=== PATIENT | female | born 1995 | race African-American/Black ===

== ENCOUNTER 2022-07-25 00:18 | Inpatient (IN) | payer MEDICAID ==
[~2022-07-25] VITALS: Ht 162.6 cm; Wt 77.2 kg
[2022-07-25] MEDS ORDERED: methylPREDNISolone SOD SUCC 125 MG/2 ML VL IM ONE (01:00)
[2022-07-25] MEDS ORDERED: IPRATROPIUM BROM 0.5 MG/2.5ML INH SOL NEB ONE (01:00)
[2022-07-25] MEDS ORDERED: ALBUTEROL SULF 2.5 MG/0.5ML(0.5%) NEB SOLN NEB ONE ×2 (01:00→04:00)
[2022-07-25] MEDS ORDERED: methylPREDNISolone SOD SUCC 125 MG/2 ML VL IV ONE (01:00)
[2022-07-25] MEDS ORDERED: cefTRIAXone 1GM/50ML D5W 50 ML IV ONE (04:00)
[2022-07-25] MEDS ORDERED: LORazepam 0.5 MG TAB PO PRN (06:45)
[2022-07-25] MEDS ORDERED: DOCUSATE SOD 100 MG CAP PO PRN (06:45)
[2022-07-25] MEDS ORDERED: MORPHINE SULFATE INJ 2 MG/ml SYRG IV PRN (06:45)
[2022-07-25] MEDS ORDERED: HYDROcodone-ACET 5/325MG TAB PO PRN (06:45)
[2022-07-25] MEDS ORDERED: MAALOX PLUS or MAALOX 30 ML PO PRN (06:45)
[2022-07-25] MEDS ORDERED: ONDANSETRON HCL 4 MG/2 ML VIAL IV PRN (06:45)
[2022-07-25] MEDS ORDERED: TEMAZEPAM 15 MG CAP PO PRN (06:45)
[2022-07-25 08:28] LABS: Hematocrit 38.1 % (36.0-46.0); Mean Corpuscular Hemoglobin 30.8 pg (28.0-32.0); Mean Corpuscular Hgb Conc. 34.1 g/dL (32.0-36.0); Mean Corpuscular Volume 90.5 fL (80.0-100.0); Red Blood Cells 4.21 10^6/uL (4.0-5.20); White Blood Cell 8.2 10^3/uL (4.4-10.8)
[2022-07-25] MEDS: SODIUM CHLORIDE 0.9% 1,000 ML IV SCH ×2 (08:34→11:00)
[2022-07-25 08:37] LABS: BUN/Creatinine Ratio 19.8; Calcium 9.2 mg/dL (8.5-10.1); Potassium 3.6 mmol/L (3.5-5.1)
[2022-07-25 09:01] LABS: Basophils % (manual) 0 (0.0-2.0); Blast Cells 0; Metamyelocytes % 0; Monocytes % (manual) 0 (0-12); Myelocytes % 0; Promyelocytes % 0; Reactive Lymphocytes 0
[2022-07-25] MEDS: ALBUTEROL SULF 2.5 MG/0.5ML(0.5%) NEB SOLN NEB PRN ×2 (09:37→13:46)
[2022-07-25 10:13] LABS: Band Neutrophils % (manual) 4; Eosinophils % (manual) 1 (0-7); Lymphocytes % (manual) 5 (10.0-50.0)
[2022-07-25] MEDS: AZITHROMYCIN 500MG/ 250ML 250 ML IV SCH (10:57)
[2022-07-25] MEDS ORDERED: methylPREDNISolone SOD SUCC 40 MG/ML VL IV SCH (14:00)
[2022-07-25] MEDS ORDERED: methylPREDNISolone SOD SUCC 40 MG/ML VL IM SCH (14:00)
[2022-07-25 15:14] VITALS: BP 122/76
[2022-07-25] MEDS: cefTRIAXone 1GM/50ML D5W 50 ML IV SCH (16:23)
[2022-07-25] MEDS: methylPREDNISolone SOD SUCC 40 MG/ML VL IV SCH (22:19)
[2022-07-25 22:32] VITALS: BP 121/84
[2022-07-25] MEDS ORDERED: HYDR-3682 PO (23:07)
[2022-07-25] MEDS ORDERED: SERT-377 PO (23:07)
[2022-07-26] MEDS: ALBUTEROL SULF 2.5 MG/0.5ML(0.5%) NEB SOLN NEB PRN ×2 (00:17→10:54)
[2022-07-26] MEDS ORDERED: PNEUMOCOCCAL VACC POLYS 25 MCG/0.5 ML VIAL IM SCH (04:15)
[2022-07-26 04:38] VITALS: BP 114/76
[2022-07-26] MEDS: methylPREDNISolone SOD SUCC 40 MG/ML VL IV SCH ×3 (05:28→22:06)
[2022-07-26 09:00] VITALS: BP 104/72
[2022-07-26] MEDS: AZITHROMYCIN 500MG/ 250ML 250 ML IV SCH (09:32)
[2022-07-26] MEDS: cefTRIAXone 1GM/50ML D5W 50 ML IV SCH (09:32)
[2022-07-26] MEDS: SODIUM CHLORIDE 0.9% 1,000 ML IV SCH (10:07)
[2022-07-26 13:00] VITALS: BP_SYST 113; BP_SYST 126; BP_DIAS 69; BP_DIAS 70
[2022-07-26] MEDS ORDERED: ALBUTEROL SULF 2.5 MG/0.5ML(0.5%) NEB SOLN NEB PRN (14:45)
[2022-07-26] MEDS: guaiFENesin 200 MG/10 ML UD PO PRN ×2 (16:54→22:07)
[2022-07-26 17:00] VITALS: BP 106/56
[2022-07-26] MEDS: ALBUTEROL SULF 2.5 MG/0.5ML(0.5%) NEB SOLN NEB SCH ×2 (18:40→23:05)
[2022-07-26 22:00] VITALS: BP 118/70
[2022-07-27 05:00] VITALS: BP 106/48
[2022-07-27] MEDS ORDERED: INFLUENZA QUAD 2022-2023 0.5 ML SYRG IM ONE (05:00)
[2022-07-27] MEDS: guaiFENesin 200 MG/10 ML UD PO PRN (05:06)
[2022-07-27] MEDS: methylPREDNISolone SOD SUCC 40 MG/ML VL IV SCH ×2 (05:07→13:19)
[2022-07-27] MEDS: ALBUTEROL SULF 2.5 MG/0.5ML(0.5%) NEB SOLN NEB SCH ×3 (05:56→14:34)
[2022-07-27] MEDS: cefTRIAXone 1GM/50ML D5W 50 ML IV SCH (08:52)
[2022-07-27] MEDS: SODIUM CHLORIDE 0.9% 1,000 ML IV SCH (08:52)
[2022-07-27 09:00] VITALS: BP 113/61
[2022-07-27] MEDS ORDERED: AZITHROMYCIN 250 MG TAB PO SCH (10:00)
[2022-07-27 13:00] VITALS: BP 107/61
[2022-07-27] MEDS ORDERED: PRED20TA2 PO ×2 (13:30→15:09)
[2022-07-27] MEDS ORDERED: AZIT500T66 PO (13:30)
[2022-07-27] MEDS ORDERED: ALBUAER3 IN (13:30)
[2022-07-27] MEDS ORDERED: ALB5IS NEB (13:30)
[2022-07-27] MEDS ORDERED: ALBUTEROL MEDNEB 2.5 mg/3ml NEB ONE (13:55)
== END 2022-07-27 15:57 | disposition home or self-care (01) | DRG 141 ==
LOC: ER 00:18 → OVERFLOW 06:37 → WEST WING 21:50
PROVIDERS: ADMIT Hospitalist; ATTEND Internal Medicine
DX: J45.41 Moderate persistent asthma with (acute) exacerbation (principal); J96.01 Acute respiratory failure with hypoxia; Z20.822 Contact with and (suspected) exposure to COVID-19; Z82.5 Family history of asthma and other chronic lower respiratory diseases; Z82.49 Family history of ischemic heart disease and other diseases of the circulatory system; Z98.51 Tubal ligation status
CPT/HCPCS: 36415; 71045; 80048; 85007; 85027; 87426; 87804; 90686; 94640; 96365; 96366; 96367; 96372; 96375; 99291; G0378; J0696